=== PATIENT | female | born 1985 | race African-American/Black ===

== ENCOUNTER 2019-07-08 06:14 | Emergency (ER) | payer MEDICAID ==
[~2019-07-08] VITALS: Ht 182.9 cm; Wt 91.0 kg
[2019-07-08] MEDS ORDERED: OXYCODONE HCL/ACETAMINOPHEN 5/325MG TABLET PO ONE ×2 (07:00→09:45)
[2019-07-08 09:54] VITALS: BP 126/72
== END 2019-07-08 10:07 | disposition home or self-care (01) ==
LOC: ER 06:36
DX: M79.662 Pain in left lower leg (principal); R10.30 Lower abdominal pain, unspecified; R07.89 Other chest pain; F41.9 Anxiety disorder, unspecified; I10 Essential (primary) hypertension; G40.909 Epilepsy, unspecified, not intractable, without status epilepticus; F17.210 Nicotine dependence, cigarettes, uncomplicated; F12.10 Cannabis abuse, uncomplicated; Z71.6 Tobacco abuse counseling; V43.52XA Car driver injured in collision with other type car in traffic accident, initial encounter; Y93.89 Activity, other specified; Y92.488 Other paved roadways as the place of occurrence of the external cause
CPT/HCPCS: 71045; 71101; 73552; 73560; 74176; 81025; 93005; 99284; 99406